=== PATIENT | female | born 1990 | race Caucasian/White ===

== ENCOUNTER 2024-02-16 07:24 | Outpatient (CLI) | payer OTHER ==
[2024-02-16] MEDS ORDERED: CLEOCIN HCL300 MG PO (13:53)
[2024-02-16] MEDS ORDERED: CIPROFLOXACIN2.5 ML OTIC (13:54)
== END 2024-02-16 07:51 | disposition home or self-care (01) ==
LOC: LAB 07:24
DX: Z00.00 Encounter for general adult medical examination without abnormal findings (principal)

== ENCOUNTER → 2024-02-16 | Day surgery (SDC) | payer OTHER ==
[2024-01-23 11:13] LABS: HEMATOCRIT 40.3 % (36.0-45.00); MEAN CELL VOLUME 89.6 fL (80.00-100.00); MEAN CORPUSCULAR HEMOGLOBIN 31.2 pg (27.00-32.0); MEAN CORPUSCULAR HGB CONC 34.8 g/dl (32.0-36.0); PLATELET COUNT 223 K/uL (150-450)
[2024-01-23 11:20] LABS: URINE APPEARANCE Cloudy; URINE BILIRRUBIN Negative (NEGATIVE); URINE BLOOD Small; URINE COLOR Yellow; URINE GLUCOSE Negative (NEGATIVE); URINE KETONE Negative (NEGATIVE); URINE LEUKOCYTE Moderate; URINE NITRATE Negative; URINE PROTEIN Negative (NEGATIVE); URINE UROBILINOGEN 0.2 E.U./dl
[2024-01-23 11:25] LABS: URINE BACTERIA 307.4 uL (0.0-1933); URINE CAST 1.83 uL (0.0-1.40); URINE EPITHELIAL CELLS 52.7 uL (0.0-38.8); URINE RBC 16.9 uL (0.0-20.8); URINE WBC 65.8 uL (0.0-23.2)
[2024-01-23 11:42] LABS: URINE MUCUS MODERATE
[2024-01-23 11:44] LABS: INR 1.04; PROTHROMBIN TIME 10.5 SECONDS (9.0-11.5)
[2024-01-23 11:54] LABS: PARTIAL THROMBOPLASTIN TIME 24.9 SECONDS (22.0-34.0)
[2024-01-23 12:08] LABS: ALBUMIN 4.2 gm/dL (3.4-5.0); CALCIUM 9.8 mg/dL (8.5-10.1); CREATININE SERUM 0.88 mg/dL (0.55-1.02); GFR 73.12; PHOSPHOROUS 3.5 mg/dL (2.5-4.9); POTASSIUM 4.02 mEq/L (3.5-5.1)
[~2024-02-16] MED LIST: CEFAZOLIN SODIUM 1,000 MG VIAL ONE; CIPROFLOXACIN2.5 ML OTIC; CLEOCIN HCL300 MG PO; DEXAMETHASONE SODIUM PHOSPHATE 4 MG/ML VIAL IV ONE; DEXAMETHASONE SODIUM PHOSPHATE 4 MG/ML VIAL ONE; EPINEPHRINE HCL/PF 1 MG/ML AMPUL IR ONE; EPINEPHRINE HCL/PF 1 MG/ML AMPUL ONE; LIDOCAINE HCL 1%/EPINEPHRINE 20ML VIAL IJ ONE; POVIDONE-IODINE 118 ML BOTT TOP ONE
== END | disposition home or self-care (01) ==
LOC: CIR.AMB 02-09 10:20
PROVIDERS: ATTEND Otolaryngology Otology & Neurotology
DX: H72.02 Central perforation of tympanic membrane, left ear (principal); H90.12 Conductive hearing loss, unilateral, left ear, with unrestricted hearing on the contralateral side; Z91.013 Allergy to seafood; Z91.040 Latex allergy status; J45.909 Unspecified asthma, uncomplicated